=== PATIENT | female | born 1955 | race Caucasian/White ===

== ENCOUNTER 2021-08-05 22:51 | Inpatient (IN) | payer OTHER ==
[~2021-08-05] VITALS: Ht 157.5 cm; Wt 77.1 kg
[2021-08-05 23:06] VITALS: BP_SYST 165
[2021-08-06] MEDS ORDERED: NACL 0.9% 1,000 ML IV ONE (02:30)
[2021-08-06] MEDS ORDERED: ONDANSETRON HCL 4 MG/2 ML VIAL IVP ONE ×2 (03:00)
[2021-08-06] MEDS ORDERED: MAG HYDROX/AL HYDROX/SIMETH 30 ML, LIDOCAINE VISCOUS 2% 15ML (PO) 15 ML, DICYCLOMINE HC... PO ONE ×3 (03:00)
[2021-08-06 03:13] LABS: BASOPHILS % (AUTO) 0.5 % (0.0-2.0); EOSINOPHILS # (AUTO) 0.3 K/uL (0.0-0.4); EOSINOPHILS % (AUTO) 5.2 % (0.0-4.0); HEMOGLOBIN 12.6 g/dL (12.0-16.0); LYMPHOCYTES # (AUTO) 1.4 K/uL (1.0-5.5); LYMPHOCYTES % (AUTO) 25.1 % (20.5-51.5); MEAN CORPUSCULAR HEMOGLOBIN 29 pg (27-31); MEAN CORPUSCULAR HGB CONC 33 % (32-36); MEAN CORPUSCULAR VOLUME 87 fL (79.0-98.0); MONOCYTES # (AUTO) 0.4 K/uL (0.0-1.0); MONOCYTES % (AUTO) 7.5 % (1.7-9.3); NEUTROPHILS # (AUTO) 3.4 K/uL (1.8-7.7); NEUTROPHILS % (AUTO) 61.7 % (40.0-70.0); PLATELET COUNT (AUTO) 274 K/uL (130-430); RED BLOOD CELL COUNT(AUTO) 4.39 MIL/uL (4.2-6.2); RED CELL DISTRIBUTION WIDTH 14.6 % (9.0-15.0); WHITE BLOOD COUNT (AUTO) 5.5 K/uL (4.8-10.8)
[2021-08-06 03:30] LABS: PROTHROMBIN TIME 9.9 SECS (9.5-12.5)
[2021-08-06 03:39] LABS: ANION GAP 10 (5-15); CALCIUM 8.7 mg/dL (8.4-11.0); CHLORIDE 105 mmol/L (98-107); CREATININE 0.83 mg/dL (0.55-1.30); GLUCOSE 127 mg/dL (70-99); POTASSIUM 3.8 mmol/L (3.5-5.1); SODIUM SERUM 141 mmol/L (136-145); UREA NITROGEN, BLOOD 18 mg/dL (8-21)
[2021-08-06 03:45] LABS: ALANINE AMINOTRANSFERASE 19 U/L (12-78); ALBUMIN 3.9 g/dL (3.4-4.8); ASPARTATE AMINOTRANSFERASE 15 U/L (10-37); TOTAL BILIRUBIN 0.3 mg/dL (0.0-1.0)
[2021-08-06 03:54] LABS: GFR AFRICAN AMERICAN 88 mL/min (>90)
[2021-08-06] MEDS ORDERED: NITROGLYCERIN LINGUAL 400 mCg/SPRAY TL ONE (04:15)
[2021-08-06] MEDS ORDERED: NITROGLYCERIN 1 INCH (GM) OINT. TP ONE (04:30)
[2021-08-06] MEDS ORDERED: MORPHINE 4 MG INJ. 4 MG/ML VIAL IVP ONE (04:30)
[2021-08-06] MEDS ORDERED: LIP20 PO (08:15)
[2021-08-06] MEDS ORDERED: GLIP10TA11 PO (08:15)
[2021-08-06] MEDS ORDERED: FURO-150 PO (08:15)
[2021-08-06] MEDS ORDERED: LEVO100T9 PO (08:15)
[2021-08-06] MEDS ORDERED: ASPI-1155 PO (08:15)
[2021-08-06] MEDS ORDERED: LISI20TA30 PO (08:15)
[2021-08-06] MEDS ORDERED: EZET1TAB22 PO (08:15)
[2021-08-06] MEDS: METOPROLOL TARTRATE 25 MG TABLET PO SCH ×2 (09:00→20:36)
[2021-08-06] MEDS: FUROSEMIDE 20 MG TABLET PO SCH (09:00)
[2021-08-06] MEDS: ASPIRIN 81 MG TAB.CHEW PO SCH (13:16)
[2021-08-06] MEDS: EZETIMIBE 10 MG TABLET PO SCH (13:16)
[2021-08-06] MEDS: ATORVASTATIN 20 MG TABLET PO SCH (13:16)
[2021-08-06] MEDS: lisinopriL 20 MG TABLET PO SCH (13:21)
[2021-08-06] MEDS ORDERED: PANTOPRAZOLE SODIUM 40 MG TAB PO ONE (13:30)
[2021-08-06 15:07] VITALS: BP_SYST 128
[2021-08-06 16:20] VITALS: BP_SYST 119
[2021-08-06 19:25] LABS: CHOLESTEROL 156 mg/dL (<200); HDL CHOLESTEROL 51 mg/dL (>55); LDL CHOLESTEROL 79 mg/dL (<100); TRIGLYCERIDES 168 mg/dL (30-150)
[2021-08-07 01:06] VITALS: BP_SYST 105
[2021-08-07 06:58] LABS: BASOPHILS % (AUTO) 0.6 % (0.0-2.0); EOSINOPHILS # (AUTO) 0.2 K/uL (0.0-0.4); EOSINOPHILS % (AUTO) 4.9 % (0.0-4.0); HEMATOCRIT 35.9 % (36-48); HEMOGLOBIN 11.9 g/dL (12.0-16.0); LYMPHOCYTES # (AUTO) 1.6 K/uL (1.0-5.5); LYMPHOCYTES % (AUTO) 33.7 % (20.5-51.5); MEAN CORPUSCULAR HEMOGLOBIN 29 pg (27-31); MEAN CORPUSCULAR HGB CONC 33 % (32-36); MEAN CORPUSCULAR VOLUME 87 fL (79.0-98.0); MONOCYTES # (AUTO) 0.4 K/uL (0.0-1.0); MONOCYTES % (AUTO) 8.3 % (1.7-9.3); NEUTROPHILS # (AUTO) 2.4 K/uL (1.8-7.7); NEUTROPHILS % (AUTO) 52.5 % (40.0-70.0); PLATELET COUNT (AUTO) 263 K/uL (130-430); RED BLOOD CELL COUNT(AUTO) 4.13 MIL/uL (4.2-6.2); RED CELL DISTRIBUTION WIDTH 14.9 % (9.0-15.0); WHITE BLOOD COUNT (AUTO) 4.6 K/uL (4.8-10.8)
[2021-08-07] MEDS ORDERED: LEVOTHYROXINE SODIUM 0.1 MG TABLET PO SCH (07:00)
[2021-08-07 07:44] LABS: ALBUMIN 3.2 g/dL (3.4-4.8); CALCIUM 7.8 mg/dL (8.4-11.0); CREATININE 0.85 mg/dL (0.55-1.30); PHOSPHORUS 2.9 mg/dL (2.7-4.5); THYROID STIMULATING HORMONE 3.13 uIu/mL (0.36-3.74); TOTAL BILIRUBIN 0.3 mg/dL (0.0-1.0)
[2021-08-07 07:49] VITALS: BP_SYST 126
[2021-08-07 08:18] LABS: BILIRUBIN,URINE NEGATIVE (NEGATIVE); BLOOD, URINE NEGATIVE (NEGATIVE); CLARITY/URINE CLEAR (CLEAR); COLOR,URINE YELLOW (YELLOW); GLUCOSE,URINE NEGATIVE (NEGATIVE); KETONES,URINE NEGATIVE (NEGATIVE); LEUKOCYTE ESTERASE ,URINE 1+ (NEGATIVE); NITRITE, URINE NEGATIVE (NEGATIVE); PH,URINE 5.5 (5.0-8.0); PROTEIN URINE NEGATIVE (NEGATIVE); UROBILINOGEN,URINE 0.2 (0.2-1.0)
[2021-08-07 08:58] LABS: BACTERIA,URINE FEW /HPF (None Seen); MUCUS,URINE None Seen /LPF (None Seen); RBC,URINE 0-3 /HPF (0-3); YEAST,URINE Rare /HPF (None Seen)
[2021-08-07] MEDS: METOPROLOL TARTRATE 25 MG TABLET PO SCH (09:00)
[2021-08-07] MEDS ORDERED: PANTOPRAZOLE SODIUM 40 MG TAB PO SCH (09:00)
[2021-08-07 11:21] VITALS: BP_SYST 115
[2021-08-07] MEDS: EZETIMIBE 10 MG TABLET PO SCH (13:12)
[2021-08-07] MEDS: ATORVASTATIN 20 MG TABLET PO SCH (13:13)
[2021-08-07] MEDS: lisinopriL 20 MG TABLET PO SCH (13:13)
[2021-08-07] MEDS: ASPIRIN 81 MG TAB.CHEW PO SCH (13:13)
[2021-08-07] MEDS: FUROSEMIDE 20 MG TABLET PO SCH (13:15)
[2021-08-07 13:23] VITALS: BP_SYST 115
== END 2021-08-07 14:00 | disposition home or self-care (01) | DRG 391 ==
LOC: SED 22:51 → STU 08-06 07:25
PROVIDERS: ADMIT Student in an Organized Health Care Education/Training Program; ATTEND Student in an Organized Health Care Education/Training Program
DX: K29.70 Gastritis, unspecified, without bleeding (principal); I21.A1 Myocardial infarction type 2; I50.30 Unspecified diastolic (congestive) heart failure; I11.0 Hypertensive heart disease with heart failure; E03.9 Hypothyroidism, unspecified; E11.9 Type 2 diabetes mellitus without complications; E78.5 Hyperlipidemia, unspecified; Z79.82 Long term (current) use of aspirin; Z79.84 Long term (current) use of oral hypoglycemic drugs; Z85.42 Personal history of malignant neoplasm of other parts of uterus; Z90.710 Acquired absence of both cervix and uterus; Z79.899 Other long term (current) drug therapy; Z88.8 Allergy status to other drugs, medicaments and biological substances; Z88.5 Allergy status to narcotic agent
CPT/HCPCS: 36415; 71045; 76700-TC; 80053; 80061; 81000; 82150; 83605; 83690; 83735; 83880; 84100; 84443; 84484; 85025; 85610-TC; 87040; 87081; 87086; 93005; 93306; 96374; 96375; 99291; G0378; J2001; J2270; J2405

== ENCOUNTER 2022-05-28 05:20 | Inpatient (IN) | payer OTHER ==
[~2022-05-28] VITALS: Ht 152.4 cm; Wt 80.7 kg
[2022-05-28 05:20] VITALS: BP_SYST 158
[~2022-05-28 05:20] MED LIST: ASPI-1155 PO; EZET-75 PO; FURO-150 PO; GLIP10TA11 PO; LEVO100T9 PO; LIP20 PO; LISI20TA30 PO
[2022-05-28] MEDS ORDERED: ASPIRIN 325 MG TABLET PO ONE (05:45)
[2022-05-28 06:19] LABS: BASOPHILS % (AUTO) 0.4 % (0.0-2.0); EOSINOPHILS # (AUTO) 0.2 K/uL (0.0-0.4); EOSINOPHILS % (AUTO) 3.9 % (0.0-4.0); HEMATOCRIT 39.1 % (36-48); HEMOGLOBIN 13.1 g/dL (12.0-16.0); LYMPHOCYTES # (AUTO) 0.9 K/uL (1.0-5.5); MEAN CORPUSCULAR HEMOGLOBIN 29 pg (27-31); MEAN CORPUSCULAR HGB CONC 33 % (32-36); MEAN CORPUSCULAR VOLUME 87 fL (79.0-98.0); MONOCYTES # (AUTO) 0.3 K/uL (0.0-1.0); MONOCYTES % (AUTO) 6.2 % (1.7-9.3); NEUTROPHILS # (AUTO) 3.6 K/uL (1.8-7.7); NEUTROPHILS % (AUTO) 71.5 % (40.0-70.0); PLATELET COUNT (AUTO) 251 K/uL (130-430); RED BLOOD CELL COUNT(AUTO) 4.48 MIL/uL (4.2-6.2)
[2022-05-28 06:33] LABS: ANION GAP 13 (5-15); CALCIUM 9.5 mg/dL (8.4-11.0); CHLORIDE 102 mmol/L (98-107); CREATININE 0.79 mg/dL (0.55-1.30); GLUCOSE 148 mg/dL (70-99); UREA NITROGEN, BLOOD 17 mg/dL (8-21)
[2022-05-28 06:41] LABS: GFR AFRICAN AMERICAN 93 mL/min (>90)
[2022-05-28 06:47] LABS: ALANINE AMINOTRANSFERASE 24 U/L (12-78); ALBUMIN 3.9 g/dL (3.4-4.8); ASPARTATE AMINOTRANSFERASE 18 U/L (10-37); TOTAL BILIRUBIN 0.6 mg/dL (0.0-1.0)
[2022-05-28 07:10] LABS: BILIRUBIN,URINE NEGATIVE (NEGATIVE); BLOOD, URINE NEGATIVE (NEGATIVE); CLARITY/URINE CLEAR (CLEAR); COLOR,URINE YELLOW (YELLOW); GLUCOSE,URINE 3+ (NEGATIVE); KETONES,URINE TRACE (NEGATIVE); LEUKOCYTE ESTERASE ,URINE NEGATIVE (NEGATIVE); NITRITE, URINE NEGATIVE (NEGATIVE); PROTEIN URINE NEGATIVE (NEGATIVE); UROBILINOGEN,URINE 0.2 (0.2-1.0)
[2022-05-28] MEDS ORDERED: LOSA50TA3 PO (08:01)
[2022-05-28] MEDS ORDERED: CIPR500T5 PO (08:01)
[2022-05-28] MEDS ORDERED: NITSL SL (08:01)
[2022-05-28] MEDS ORDERED: LEVO125T8 PO (08:01)
[2022-05-28] MEDS ORDERED: MAG HYDROX/AL HYDROX/SIMETH 30 ML, DICYCLOMINE HCL 20 MG, LIDOCAINE VISCOUS 2% 15ML (PO... PO ONE ×3 (08:15)
[2022-05-28 10:35] VITALS: BP_SYST 138
[2022-05-28] MEDS ORDERED: METOPROLOL SUCCINATE 25 MG TAB.SR.24H (TOPROL XL) PO ONE (13:15)
[2022-05-28 13:27] VITALS: BP_SYST 122
[2022-05-28 13:30] LABS: AMYLASE 41 U/L (0-100); LIPASE 145 U/L (73-393)
[2022-05-28] MEDS ORDERED: ONDANSETRON HCL 4 MG/2 ML VIAL IVP PRN (13:45)
[2022-05-28] MEDS ORDERED: NITROGLYCERIN 0.4 MG TAB.SUBL SL PRN (13:45)
[2022-05-28] MEDS ORDERED: LORazepam 2 MG/ML VIAL IVP PRN (13:45)
[2022-05-28 16:30] VITALS: BP_SYST 126
[2022-05-28] MEDS: CIPROFLOXACIN HCL 500 MG TABLET PO SCH (20:57)
[2022-05-28] MEDS: ATORVASTATIN 20 MG TABLET PO SCH (20:58)
[2022-05-28] MEDS: NORMAL SALINE 5 ML DISP.SYRIN IVF SCH (20:58)
[2022-05-28 22:35] VITALS: BP_SYST 129
[2022-05-29 01:22] VITALS: BP_SYST 105
[2022-05-29 05:10] LABS: ALBUMIN 3.4 g/dL (3.4-4.8); CALCIUM 9.1 mg/dL (8.4-11.0); CREATININE 0.9 mg/dL (0.55-1.30); PHOSPHORUS 4.7 mg/dL (2.7-4.5); TOTAL BILIRUBIN 0.3 mg/dL (0.0-1.0)
[2022-05-29] MEDS: NORMAL SALINE 5 ML DISP.SYRIN IVF SCH ×3 (05:37→22:09)
[2022-05-29 05:40] VITALS: BP_SYST 116
[2022-05-29 06:13] LABS: BASOPHILS % (AUTO) 0.4 % (0.0-2.0); EOSINOPHILS # (AUTO) 0.2 K/uL (0.0-0.4); EOSINOPHILS % (AUTO) 4.4 % (0.0-4.0); HEMATOCRIT 37.2 % (36-48); HEMOGLOBIN 12.5 g/dL (12.0-16.0); LYMPHOCYTES # (AUTO) 1.6 K/uL (1.0-5.5); LYMPHOCYTES % (AUTO) 31.5 % (20.5-51.5); MEAN CORPUSCULAR HEMOGLOBIN 30 pg (27-31); MEAN CORPUSCULAR HGB CONC 34 % (32-36); MEAN CORPUSCULAR VOLUME 88 fL (79.0-98.0); MONOCYTES # (AUTO) 0.5 K/uL (0.0-1.0); MONOCYTES % (AUTO) 9.1 % (1.7-9.3); NEUTROPHILS # (AUTO) 2.8 K/uL (1.8-7.7); NEUTROPHILS % (AUTO) 54.6 % (40.0-70.0); PLATELET COUNT (AUTO) 265 K/uL (130-430); RED BLOOD CELL COUNT(AUTO) 4.21 MIL/uL (4.2-6.2); RED CELL DISTRIBUTION WIDTH 14.1 % (9.0-15.0); WHITE BLOOD COUNT (AUTO) 5.2 K/uL (4.8-10.8)
[2022-05-29] MEDS ORDERED: LEVOTHYROXINE SODIUM 0.125 MG TABLET PO SCH (07:00)
[2022-05-29] MEDS: LOSARTAN POTASSIUM 50 MG TABLET (COZAAR) PO SCH (08:53)
[2022-05-29] MEDS: METOPROLOL SUCCINATE 25 MG TAB.SR.24H (TOPROL XL) PO SCH (08:54)
[2022-05-29] MEDS: CIPROFLOXACIN HCL 500 MG TABLET PO SCH ×2 (08:57→22:09)
[2022-05-29 11:10] VITALS: BP_SYST 129
[2022-05-29] MEDS ORDERED: METO-540 PO (11:10)
[2022-05-29 15:35] VITALS: BP_SYST 118
[2022-05-29] MEDS: ATORVASTATIN 20 MG TABLET PO SCH (22:13)
[2022-05-29 23:19] VITALS: BP_SYST 119
[2022-05-30 01:08] VITALS: BP_SYST 116
[2022-05-30] MEDS: NORMAL SALINE 5 ML DISP.SYRIN IVF SCH ×2 (05:14→14:00)
[2022-05-30 05:16] VITALS: BP_SYST 118
[2022-05-30 07:13] LABS: BASOPHILS % (AUTO) 0.4 % (0.0-2.0); EOSINOPHILS # (AUTO) 0.2 K/uL (0.0-0.4); EOSINOPHILS % (AUTO) 4.3 % (0.0-4.0); HEMATOCRIT 39.2 % (36-48); LYMPHOCYTES # (AUTO) 1.3 K/uL (1.0-5.5); LYMPHOCYTES % (AUTO) 25.3 % (20.5-51.5); MEAN CORPUSCULAR HEMOGLOBIN 29 pg (27-31); MEAN CORPUSCULAR HGB CONC 33 % (32-36); MEAN CORPUSCULAR VOLUME 88 fL (79.0-98.0); MONOCYTES # (AUTO) 0.5 K/uL (0.0-1.0); MONOCYTES % (AUTO) 8.8 % (1.7-9.3); NEUTROPHILS # (AUTO) 3.2 K/uL (1.8-7.7); NEUTROPHILS % (AUTO) 61.2 % (40.0-70.0); PLATELET COUNT (AUTO) 259 K/uL (130-430); RED BLOOD CELL COUNT(AUTO) 4.45 MIL/uL (4.2-6.2); RED CELL DISTRIBUTION WIDTH 14.4 % (9.0-15.0); WHITE BLOOD COUNT (AUTO) 5.3 K/uL (4.8-10.8)
[2022-05-30 07:16] LABS: CALCIUM 8.9 mg/dL (8.4-11.0); CREATININE 0.91 mg/dL (0.55-1.30)
[2022-05-30] MEDS: LOSARTAN POTASSIUM 50 MG TABLET (COZAAR) PO SCH (09:00)
[2022-05-30] MEDS: METOPROLOL SUCCINATE 25 MG TAB.SR.24H (TOPROL XL) PO SCH (09:00)
[2022-05-30] MEDS: CIPROFLOXACIN HCL 500 MG TABLET PO SCH ×2 (10:00→21:10)
[2022-05-30] MEDS ORDERED: REGADENOSON 0.4 MG/5 ML SYRINGE IVP ONE (10:00)
[2022-05-30 11:35] VITALS: BP_SYST 124
[2022-05-30 15:05] VITALS: BP_SYST 132
[2022-05-30 20:00] VITALS: BP_SYST 132
[2022-05-30] MEDS: ATORVASTATIN 20 MG TABLET PO SCH (21:10)
[2022-05-30 23:55] VITALS: BP_SYST 132
[2022-05-31 00:05] VITALS: BP_SYST 139
[2022-05-31] MEDS: NORMAL SALINE 5 ML DISP.SYRIN IVF SCH (00:14)
[2022-05-31 07:06] LABS: BASOPHILS % (AUTO) 0.4 % (0.0-2.0); EOSINOPHILS # (AUTO) 0.2 K/uL (0.0-0.4); EOSINOPHILS % (AUTO) 3.3 % (0.0-4.0); HEMATOCRIT 39.2 % (36-48); HEMOGLOBIN 13.2 g/dL (12.0-16.0); LYMPHOCYTES # (AUTO) 1.4 K/uL (1.0-5.5); LYMPHOCYTES % (AUTO) 25.1 % (20.5-51.5); MEAN CORPUSCULAR HEMOGLOBIN 30 pg (27-31); MEAN CORPUSCULAR HGB CONC 34 % (32-36); MEAN CORPUSCULAR VOLUME 88 fL (79.0-98.0); MONOCYTES # (AUTO) 0.5 K/uL (0.0-1.0); MONOCYTES % (AUTO) 8.3 % (1.7-9.3); NEUTROPHILS # (AUTO) 3.6 K/uL (1.8-7.7); NEUTROPHILS % (AUTO) 62.9 % (40.0-70.0); PLATELET COUNT (AUTO) 264 K/uL (130-430); RED BLOOD CELL COUNT(AUTO) 4.46 MIL/uL (4.2-6.2); WHITE BLOOD COUNT (AUTO) 5.8 K/uL (4.8-10.8)
[2022-05-31 08:03] VITALS: BP_SYST 131
[2022-05-31 08:05] LABS: CALCIUM 9.3 mg/dL (8.4-11.0); CREATININE 0.8 mg/dL (0.55-1.30)
[2022-05-31] MEDS: LOSARTAN POTASSIUM 50 MG TABLET (COZAAR) PO SCH (08:36)
[2022-05-31] MEDS: METOPROLOL SUCCINATE 25 MG TAB.SR.24H (TOPROL XL) PO SCH (08:39)
[2022-05-31] MEDS: CIPROFLOXACIN HCL 500 MG TABLET PO SCH (09:20)
[2022-05-31 11:34] VITALS: BP_SYST 116
[2022-05-31 12:03] VITALS: BP_SYST 116
== END 2022-05-31 14:30 | disposition short-term general hospital (02) | DRG 303 ==
LOC: SED 05:20 → STU 08:47
PROVIDERS: ADMIT Preventive Medicine Preventive Medicine/Occupational Environmental Medicine; ATTEND Preventive Medicine Preventive Medicine/Occupational Environmental Medicine
DX: I25.10 Atherosclerotic heart disease of native coronary artery without angina pectoris (principal); I10 Essential (primary) hypertension; E78.5 Hyperlipidemia, unspecified; E03.9 Hypothyroidism, unspecified; E11.65 Type 2 diabetes mellitus with hyperglycemia; K81.9 Cholecystitis, unspecified; Z20.822 Contact with and (suspected) exposure to COVID-19; Z88.6 Allergy status to analgesic agent; Z88.8 Allergy status to other drugs, medicaments and biological substances; Z79.82 Long term (current) use of aspirin; Z79.899 Other long term (current) drug therapy; Z79.2 Long term (current) use of antibiotics
CPT/HCPCS: 36415; 71045; 80048; 80053; 81003; 82150; 83690; 83735; 83880; 84100; 84484; 85025; 87081; 93005; 93017; 93306; 99285; A9500; G0378; J2001; J2785

== ENCOUNTER 2022-11-08 19:20 | Emergency (ER) | payer OTHER ==
[~2022-11-08] VITALS: Ht 154.9 cm; Wt 73.9 kg
[~2022-11-08 19:20] MED LIST changes: -ASPI-1155 PO; +CIPR500T5 PO; -EZET-75 PO; -FURO-150 PO; -GLIP10TA11 PO; -LEVO100T9 PO; +LEVO125T8 PO; -LISI20TA30 PO; +LOSA50TA3 PO; +METO-540 PO; +NITSL SL
[2022-11-08 19:37] VITALS: BP_SYST 159; PULSE 72; RESP 18; TEMP 98; O2SAT 97
[2022-11-08 20:26] LABS: BASOPHILS % (AUTO) 0.4 % (0.0-2.0); EOSINOPHILS # (AUTO) 0.2 K/uL (0.0-0.4); EOSINOPHILS % (AUTO) 3.2 % (0.0-4.0); HEMATOCRIT 39.3 % (36-48); HEMOGLOBIN 12.6 g/dL (12.0-16.0); LYMPHOCYTES # (AUTO) 1.4 K/uL (1.0-5.5); LYMPHOCYTES % (AUTO) 24.1 % (20.5-51.5); MEAN CORPUSCULAR HEMOGLOBIN 28 pg (27-31); MEAN CORPUSCULAR HGB CONC 32 % (32-36); MEAN CORPUSCULAR VOLUME 88 fL (79.0-98.0); MONOCYTES # (AUTO) 0.4 K/uL (0.0-1.0); MONOCYTES % (AUTO) 7.1 % (1.7-9.3); NEUTROPHILS # (AUTO) 3.9 K/uL (1.8-7.7); NEUTROPHILS % (AUTO) 65.2 % (40.0-70.0); PLATELET COUNT (AUTO) 298 K/uL (130-430); RED BLOOD CELL COUNT(AUTO) 4.49 MIL/uL (4.2-6.2); RED CELL DISTRIBUTION WIDTH 14.9 % (9.0-15.0)
[2022-11-08 20:36] LABS: CALCIUM 8.6 mg/dL (8.4-11.0); CREATININE 0.84 mg/dL (0.55-1.30); POTASSIUM 4.2 mmol/L (3.5-5.1)
[2022-11-08 20:40] LABS: ALBUMIN 3.9 g/dL (3.4-4.8); TOTAL BILIRUBIN 0.3 mg/dL (0.0-1.0); TOTAL PROTEIN, SERUM 7.5 g/dL (6.4-8.3)
[2022-11-08] MEDS ORDERED: MAG HYDROX/AL HYDROX/SIMETH 30 ML, DICYCLOMINE HCL 20 MG, LIDOCAINE VISCOUS 2% 15ML (PO... PO ONE ×3 (21:45)
[2022-11-08] MEDS ORDERED: ONDANSETRON HCL 4 MG/2 ML VIAL IVP ONE (21:45)
[2022-11-08] MEDS ORDERED: ACETAMINOPHEN 500 MG TABLET PO ONE (21:45)
[2022-11-08] MEDS ORDERED: MAG-AL HYDROX/SIMETH 30 ML UDC ONE (21:46)
[2022-11-08] MEDS ORDERED: DICYCLOMINE HCL 10 MG/5 ML SOLUTION ONE (21:46)
[2022-11-08 21:47] LABS: CLARITY/URINE CLEAR (CLEAR); COLOR,URINE YELLOW (YELLOW); GLUCOSE,URINE 1+ (NEGATIVE); PH,URINE 7.5 (5.0-8.0); PROTEIN URINE NEGATIVE (NEGATIVE)
[2022-11-08 21:48] LABS: BILIRUBIN,URINE NEGATIVE (NEGATIVE); BLOOD, URINE NEGATIVE (NEGATIVE); KETONES,URINE NEGATIVE (NEGATIVE); LEUKOCYTE ESTERASE ,URINE NEGATIVE (NEGATIVE); NITRITE, URINE NEGATIVE (NEGATIVE); UROBILINOGEN,URINE 0.2 (0.2-1.0)
[2022-11-08] MEDS ORDERED: iohexoL 300 mgI/mL, 150 ML INFUS..BTL IV ONE (22:21)
[2022-11-08] MEDS ORDERED: OMEP40CA20 PO (23:43)
[2022-11-08] MEDS ORDERED: SUCR1TAB2 PO (23:43)
[2022-11-09 00:37] VITALS: BP_SYST 170; PULSE 65; RESP 12; TEMP 97.7; O2SAT 97
== END 2022-11-09 00:37 | disposition home or self-care (01) ==
LOC: SED 19:20
DX: R10.13 Epigastric pain (principal); R10.32 Left lower quadrant pain; R11.0 Nausea; I10 Essential (primary) hypertension; E11.9 Type 2 diabetes mellitus without complications; Z88.5 Allergy status to narcotic agent; Z88.6 Allergy status to analgesic agent; Z79.899 Other long term (current) drug therapy
CPT/HCPCS: 99285; 74177; 96374; 80053; 83690; 85025; 84484; 36415; 93005; 76376; 81003; Q9967; J2405

== ENCOUNTER 2023-01-18 04:17 | Emergency (ER) | payer OTHER ==
[~2023-01-18] VITALS: Ht 152.4 cm; Wt 76.7 kg
[~2023-01-18 04:17] MED LIST changes: +LOSA-413 PO; -LOSA50TA3 PO; +OMEP40CA20 PO; +SUCR1TAB2 PO
[2023-01-18 04:23] VITALS: BP_SYST 157; PULSE 57; RESP 20; TEMP 99.4; O2SAT 98
[2023-01-18] MEDS ORDERED: KETOROLAC TROMETHAMINE 30 MG VIAL IVP ONE (05:00)
[2023-01-18] MEDS ORDERED: ONDANSETRON HCL 4 MG/2 ML VIAL IVP ONE (05:00)
[2023-01-18 05:22] LABS: BILIRUBIN,URINE NEGATIVE (NEGATIVE); BLOOD, URINE NEGATIVE (NEGATIVE); COLOR,URINE YELLOW (YELLOW); GLUCOSE,URINE NEGATIVE (NEGATIVE); KETONES,URINE NEGATIVE (NEGATIVE); NITRITE, URINE NEGATIVE (NEGATIVE); PROTEIN URINE NEGATIVE (NEGATIVE); UROBILINOGEN,URINE 0.2 (0.2-1.0)
[2023-01-18 05:40] LABS: BASOPHILS % (AUTO) 0.5 % (0.0-2.0); EOSINOPHILS # (AUTO) 0.4 K/uL (0.0-0.4); EOSINOPHILS % (AUTO) 7.5 % (0.0-4.0); HEMATOCRIT 40.3 % (36-48); HEMOGLOBIN 13.1 g/dL (12.0-16.0); LYMPHOCYTES # (AUTO) 1.2 K/uL (1.0-5.5); LYMPHOCYTES % (AUTO) 21.8 % (20.5-51.5); MEAN CORPUSCULAR HEMOGLOBIN 29 pg (27-31); MEAN CORPUSCULAR HGB CONC 33 % (32-36); MEAN CORPUSCULAR VOLUME 89 fL (79.0-98.0); MONOCYTES # (AUTO) 0.3 K/uL (0.0-1.0); MONOCYTES % (AUTO) 6.3 % (1.7-9.3); NEUTROPHILS # (AUTO) 3.5 K/uL (1.8-7.7); NEUTROPHILS % (AUTO) 63.9 % (40.0-70.0); PLATELET COUNT (AUTO) 288 K/uL (130-430); RED BLOOD CELL COUNT(AUTO) 4.55 MIL/uL (4.2-6.2); WHITE BLOOD COUNT (AUTO) 5.4 K/uL (4.8-10.8)
[2023-01-18 06:24] LABS: CLARITY/URINE SLIGHTLY CLOUDY (CLEAR); LEUKOCYTE ESTERASE ,URINE 1+ (NEGATIVE)
[2023-01-18 06:25] LABS: BACTERIA,URINE FEW /HPF (None Seen); RBC,URINE 0-3 /HPF (0-3); WBC,URINE 20-50 /HPF (0-3)
[2023-01-18 06:26] VITALS: BP_SYST 147; PULSE 61; RESP 20; TEMP 98.1; O2SAT 95
[2023-01-18 07:06] LABS: ALBUMIN 4.4 g/dL (3.4-4.8); CALCIUM 9.5 mg/dL (8.4-11.0); CREATININE 0.89 mg/dL (0.55-1.30); POTASSIUM 4.4 mmol/L (3.5-5.1); TOTAL BILIRUBIN 0.5 mg/dL (0.0-1.0); TOTAL PROTEIN, SERUM 7.9 g/dL (6.4-8.3)
[2023-01-18] MEDS ORDERED: CEPH-548 PO (07:07)
[2023-01-18] MEDS ORDERED: cefTRIAXone 1 GM IVPB PREMIX 50 ML IV ONE (07:15)
== END 2023-01-18 08:06 | disposition home or self-care (01) ==
LOC: SED 04:17
DX: R10.10 Upper abdominal pain, unspecified (principal); R07.9 Chest pain, unspecified; R11.2 Nausea with vomiting, unspecified; E11.9 Type 2 diabetes mellitus without complications; I10 Essential (primary) hypertension; Z88.2 Allergy status to sulfonamides; Z88.5 Allergy status to narcotic agent; Z88.6 Allergy status to analgesic agent; Z79.899 Other long term (current) drug therapy
CPT/HCPCS: 99285; 74176; 96374; 71045; 96375; 80053; 81001; 83690; 85025; 87086; 84484; 36415; 93005; 81000; 81015; J0696; J1885; J2405